=== PATIENT | female | born 1975 | race Caucasian/White ===

== ENCOUNTER 2016-09-20 21:07 | Emergency (ER) | payer MEDICAID ==
[2016-09-20] MEDS ORDERED: ONDANSETRON 4 MG VIAL ONE (22:22)
[2016-09-20] MEDS ORDERED: KETOROLAC 30 MG/ML VIAL ONE (22:22)
[2016-09-20] MEDS ORDERED: SODIUM CHLORIDE 0.9% 1,000 ML ONE (22:22)
[2016-09-20] MEDS ORDERED: DILAUDID 1 MG/ML AMP ONE ×2 (22:24→23:34)
[2016-09-21] MEDS ORDERED: DILAUDID 1 MG/ML AMP ONE (00:56)
== END 2016-09-21 01:39 | disposition home or self-care (01) ==
LOC: ER 21:07
DX: N13.6 Pyonephrosis (principal); N30.01 Acute cystitis with hematuria; Z87.442 Personal history of urinary calculi
CPT/HCPCS: 36415; 74000; 74176; 80053; 81001; 83690; 84703; 85025; 87088; 96361; 96374; 96375; 96376

== ENCOUNTER 2016-09-27 19:40 | Emergency (ER) | payer MEDICAID ==
[2016-09-27] MEDS ORDERED: PROMETHAZINE 25 MG/ML VIAL ONE (20:08)
[2016-09-27] MEDS ORDERED: SODIUM CHLORIDE 0.9% 50 ML IV ONE (20:09)
[2016-09-27] MEDS ORDERED: KETOROLAC 30 MG/ML VIAL ONE (20:09)
[2016-09-27] MEDS ORDERED: DILAUDID 1 MG/ML AMP ONE ×2 (20:25→22:04)
== END 2016-09-27 23:33 | disposition home or self-care (01) ==
LOC: ER 19:40
DX: N20.1 Calculus of ureter (principal); Z87.442 Personal history of urinary calculi
CPT/HCPCS: 36415; 74176; 76775; 80053; 80307; 81001; 83690; 85025; 87088; 96365; 96375; 96376